=== PATIENT | female | born 1985 | race African-American/Black ===

== ENCOUNTER 2017-01-12 17:54 | Emergency (ER) | payer MEDICAID ==
[2017-01-12 18:10] VITALS: BP 137/91
[2017-01-12] MEDS ORDERED: ERYTHROMYCIN 0.5% OPH OINTMENT 3.5 GM (ER DISP) OD PRN (18:48)
--- NOTE | 2017-01-12 18:54 | ER Document Report ---
HPI - HPI Patient complains to provider of: Swollen area to right lower eyelid Onset: Other Onset/Duration: Persistent Quality of pain: Dull Severity: Mild Pain Level: 2 Context: Patient states she has had swelling to right lower eyelid for several months. Has tried [id number] stye medication without relief of symptoms. Denies drainage. Associated Symptoms: None Exacerbated by: Denies Relieved by: Denies Similar symptoms previously: Yes Recently seen / treated by doctor: No - ROS ROS below otherwise negative: Yes Systems Reviewed and Negative: Yes All other systems reviewed and negative - CONSTITUTIONAL Constitutional: DENIES: Fever - EENT EENT: REPORTS: Eye problems. DENIES: Sore Throat - NEURO Neurology: DENIES: Headache - CARDIOVASCULAR Cardiovascular: DENIES: Chest pain - RESPIRATORY Respiratory: DENIES: Trouble Breathing - GASTROINTESTINAL Gastrointestinal: DENIES: Abdominal Pain - URINARY Urinary: DENIES: Dysuria - MUSCULOSKELETAL Musculoskeletal: DENIES: Extremity pain - DERM Skin Color: Normal Past Medical History - General Information source: Patient - Social History Smoking Status: Current Every Day Smoker Cigarette use (# per day): Yes Frequency of alcohol use: None Drug Abuse: None Lives with: Family Family History: Reviewed & Not Pertinent Patient has suicidal ideation: No Patient has homicidal ideation: No - Medical History Medical History: Negative Past Surgical History: Reports: Hx Appendectomy, Hx Breast Surgery, Hx Tonsillectomy - Immunizations Immunizations up to date: Yes Vertical Provider Document - CONSTITUTIONAL Agree With Documented VS: Yes Exam Limitations: No Limitations General Appearance: WD/WN, No Apparent Distress - INFECTION CONTROL TRAVEL OUTSIDE OF THE [place] IN LAST 30 DAYS: No - HEENT HEENT: Atraumatic, Normal ENT Exam, Normocephalic, PERRLA. negative: Conjuctival Injection Notes: Small hard cystic-like structure to right lower outer eyelid at base of hair follicle. No pustule noted, no erythema to eyelid. - RESPIRATORY Respiratory: Breath Sounds Normal, No Respiratory Distress O2 Sat by Pulse Oximetry: 100 - CARDIOVASCULAR Cardiovascular: Regular Rate, Regular Rhythm - MUSCULOSKELETAL/EXTREMETIES Musculoskeletal/Extremeties: MAEW - NEURO Level of Consciousness: Awake, Alert, Appropriate - DERM Integumentary: Warm, Dry Course - Vital Signs Vital signs: Temp Pulse Resp BP Pulse Ox 98.9 F 81 18 137/91 H 100 01/12/17 18:07 01/12/17 18:07 01/12/17 18:07 01/12/17 18:07 01/12/17 18:07 Discharge - Discharge Clinical Impression: Cyst of right lower eyelid Condition: Good Disposition: HOME, SELF-CARE Instructions: Antibiotic Therapy ([facility]) Additional Instructions: Apply ointment to right lower eyelid as instructed Oral antibiotics as prescribed Warm compresses to eyelid Follow-up with eye doctor if not resolved after treatment for further evaluation Return as needed Prescriptions: Cephalexin [Cephalexin 500 MG Capsule] 1 cap PO QID #28 capsule
== END 2017-01-12 19:37 | disposition home or self-care (01) ==
LOC: ER 17:54
DX: H02.822 Cysts of right lower eyelid (principal); F17.210 Nicotine dependence, cigarettes, uncomplicated
CPT/HCPCS: 99282